=== PATIENT | male | born 1955 | race Caucasian/White ===

== ENCOUNTER 2024-06-28 13:05 | Outpatient (CLI) | payer MEDICARE | END 2024-06-28 23:59 | disposition home or self-care (01) | LOC: MRI 13:05 | PROVIDERS: ATTEND Family Medicine Sports Medicine | DX: M47.817 Spondylosis without myelopathy or radiculopathy, lumbosacral region (principal); M51.369 Other intervertebral disc degeneration, lumbar region without mention of lumbar back pain or lower extremity pain; M48.07 Spinal stenosis, lumbosacral region; M43.17 Spondylolisthesis, lumbosacral region; M53.3 Sacrococcygeal disorders, not elsewhere classified; M17.11 Unilateral primary osteoarthritis, right knee; M21.161 Varus deformity, not elsewhere classified, right knee; G89.29 Other chronic pain; R22.2 Localized swelling, mass and lump, trunk; R22.42 Localized swelling, mass and lump, left lower limb; M25.78 Osteophyte, vertebrae; N28.89 Other specified disorders of kidney and ureter; N40.0 Benign prostatic hyperplasia without lower urinary tract symptoms; K42.9 Umbilical hernia without obstruction or gangrene; N43.3 Hydrocele, unspecified; M25.561 Pain in right knee | CPT/HCPCS: 72148; 72195 ==